=== PATIENT | female | born 1985 ===

== ENCOUNTER 2017-04-21 20:14 | Emergency (ER) | payer OTHER ==
[2017-04-21 20:28] VITALS: BMI 65.0
[2017-04-21 20:34] VITALS: TEMP 99.4
[2017-04-21] MEDS ORDERED: TDAP Vaccine 0.5 mL Syr IM ONE (21:06)
--- NOTE | 2017-04-21 21:08 | ED PDOC ---
Arrival/HPI - General Historian: Patient - History of Present Illness Time/Duration: Prior to Arrival Symptom Onset: Sudden Symptom Course: Unchanged Activities at Onset: Light Context: Home - General Chief Complaint: Abnormal Skin Integrity Time Seen by Provider: 04/21/17 20:52 - History of Present Illness Narrative History of Present Illness (Text): 04/21/17 21:05 32 year old female who presents to the Emergency department after sustaining a laceration to her left forearm. Patient states she accidentally cut her left forearm on an air conditioner. Patient deniers any weakness/numbness/tingling in the extremity, decreased range of motion, other trauma/injury, or any other complaints. (Kvng VALENCIA,Marjorie Fulton) Past Medical History - Provider Review Nursing Documentation Reviewed: Yes - Infectious Disease Hx of Infectious Diseases: None - Pulmonary Hx Respiratory Disorders: Yes Hx Asthma: Yes - Psychiatric Hx Substance Use: Yes Family/Social History - Physician Review Nursing Documentation Reviewed: Yes Family/Social History: Unknown Family HX Smoking Status: Light Smoker < 10 Cigarettes Daily Hx Alcohol Use: Yes Hx Substance Use: Yes Allergies/Home Meds Allergies/Adverse Reactions: Allergies No Known Allergies Allergy (Verified 10/19/16 12:25) Home Medications: Home Meds Medication Instructions Recorded Confirmed Albuterol HFA [Ventolin HFA 90 1 puff INH QID PRN 04/21/17 04/21/17 mcg/actuation (8 g)] Multivit/Folic Acid/I 1 tab PO DAILY 04/21/17 04/21/17 [] Sertraline [Zoloft] 100 mg PO DAILY 04/21/17 04/21/17 Review of Systems - Physician Review All systems were reviewed & negative as marked: Yes - Review of Systems Constitutional: Normal Eyes: Normal ENT: Normal Respiratory: Normal. absent: SOB Cardiovascular: Normal Gastrointestinal: Normal. absent: Nausea, Vomiting Genitourinary Female: Normal Musculoskeletal: Normal Skin: Laceration. absent: Rash Neurological: Normal. absent: Headache, Dizziness Endocrine: Normal Hemo/Lymphatic: Normal Psychiatric: Normal Physical Exam Vital Signs Reviewed: Yes Temperature: Afebrile Blood Pressure: Normal Pulse: Regular Respiratory Rate: Normal Appearance: Positive for: Well-Appearing, Non-Toxic, Comfortable Pain Distress: None Mental Status: Positive for: Alert and Oriented X 3 - Systems Exam Head: Present: Atraumatic, Normocephalic Pupils: Present: PERRL Extroacular Muscles: Present: EOMI Conjunctiva: Present: Normal Mouth: Present: Moist Mucous Membranes Upper Extremity: Present: Normal ROM, NORMAL PULSES, Neurovascularly Intact, Capillary Refill < 2s, Other (3 cm superficial laceration to volar aspect of left forearm). No: Cyanosis, Edema, Tenderness, Swelling, Erythema, Temperature Abnormalties, Deformity Lower Extremity: Present: Normal Inspection. No: Edema Neurological: Present: GCS=15, CN II-XII Intact, Speech Normal Skin: Present: Warm, Dry, Normal Color. 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 Differential Diagnosis included but are not limited to: laceration Plan: -- Laceration repair -- Tetanus vaccination -- Reassess and disposition Progress Notes: PROCEDURE: LACERATION REPAIR Performed by the emergency provider Location: Volar aspect left forearm Length: 3 cm Description: superficial, clean wound edges, no foreign bodies Distal CMS: Normal. No deficits. Neurovascularly intact. Preparation: The wound was cleaned with NS and Betadyne. The area was prepped and draped in the usual sterile fashion. Exploration: The wound was explored and no foreign bodies were found. Procedure: The wound was closed with Dermabond. Post-Procedure: Good closure and hemostasis. The patient tolerated the procedure well and there were no complications. CSM remains intact. Post procedure dressing applied. ( Kvng VALENCIA,Marjorie Fulton) - Medication Orders Current Medication Orders: Discontinued Medications Tetanus/Reduced Diphtheria/Acell Pertussis (Boostrix Vaccine Inj) 0.5 ml IM .ONCE ONE Stop: 04/21/17 21:07 Last Admin: 04/21/17 21:36 Dose: 0.5 ml - PA / SUPERVISOR PATCHING / Resident Statement MD/DO has reviewed & agrees with the documentation as recorded. - Scribe Statement The provider has reviewed the documentation as recorded by the Scribe - Scribe Statement Radha Ambriz Provider Scribe Attestation: All medical record entries made by the Scribe were at my direction and personally dictated by me. I have reviewed the chart and agree that the record accurately reflects my personal performance of the history, physical exam, medical decision making, and the department course for this patient. I have also personally directed, reviewed, and agree with the discharge instructions and disposition. (Kvng VALENCIA,Marjorie Fulton) Disposition/Present on Arrival - Present on Arrival Any Indicators Present on Arrival: No History of DVT/PE: No History of Uncontrolled Diabetes: No Urinary Catheter: No History of Decub. Ulcer: No History Surgical Site Infection Following: None - Disposition Have Diagnosis and Disposition been Completed?: Yes Disposition Time: 21:00 Patient Plan: Discharge - Disposition Diagnosis: Forearm laceration Disposition: HOME/ ROUTINE Condition: STABLE Discharge Instructions (ExitCare): Laceration (ED), Skin Adhesive Care (ED) Print Language: GREENLANDIC Additional Instructions: Thank you for letting us take care of you today. You were treated for forearm laceration. The emergency medical care you received today was directed at your acute symptoms. Return to the Emergency Department if your symptoms worsen, do not improve, or if you have any other problems. Please contact your doctor in 2 days for re-evaluation and follow up. Bring any paperwork you were given at discharge with you along with any medications you are taking to your follow up visit. Our treatment cannot replace ongoing medical care by a primary care provider (PCP) outside of the emergency department. Thank you for allowing the [facility] team to be part of your care today. Referrals: [facility] at [facility] [place] [Outside] - Follow up with primary Forms: [employer] (Danish), WORK NOTE
[2017-04-21 22:07] VITALS: BP 149/85; PULSE 90; RESP 18; O2SAT 98
== END 2017-04-21 21:40 | disposition home or self-care (01) ==
LOC: ED 20:14
DX: S51.812A Laceration without foreign body of left forearm, initial encounter (principal); W45.8XXA Other foreign body or object entering through skin, initial encounter; Z23 Encounter for immunization

== ENCOUNTER 2017-04-24 18:09 | Emergency (ER) | payer OTHER ==
[2017-04-24 18:10] VITALS: BMI 65.0
[2017-04-24 18:23] VITALS: RESP 18; TEMP 98.9
--- NOTE | 2017-04-24 18:23 | ED PDOC ---
Arrival/HPI - General Time Seen by Provider: 04/24/17 18:11 Historian: Patient - History of Present Illness Narrative History of Present Illness (Text): 04/24/17 18:22 32 y/o female, pmh including htn/asthma/TIA?, nkda, s/p seen in the ER about 3 days ago for rt. forearm laceration and here for the evaluation as she has pus draining out. Pt. stated that she had a metal scratch laceration on the rt. forearm, discharge home with no antibiotic after the dermabond, no fever or chills, no difficulty moving the rt. forearm, no numbness or tingling, no other medical or psychological complaints. Past Medical History - Provider Review Nursing Documentation Reviewed: Yes - Infectious Disease Hx of Infectious Diseases: None - Pulmonary Hx Respiratory Disorders: Yes Hx Asthma: Yes - Psychiatric Hx Substance Use: Yes Family/Social History - Physician Review Nursing Documentation Reviewed: Yes Family/Social History: Unknown Family HX Smoking Status: Light Smoker < 10 Cigarettes Daily Hx Alcohol Use: Yes Hx Substance Use: Yes Allergies/Home Meds Allergies/Adverse Reactions: Allergies No Known Allergies Allergy (Verified 04/24/17 18:23) Home Medications: Home Meds Medication Instructions Recorded Confirmed Albuterol HFA [Ventolin HFA 90 1 puff INH QID PRN 04/21/17 04/24/17 mcg/actuation (8 g)] Multivit/Folic Acid/I 1 tab PO DAILY 04/21/17 04/24/17 [] Sertraline [Zoloft] 100 mg PO DAILY 04/21/17 04/24/17 Review of Systems - Review of Systems Constitutional: absent: Fatigue, Fevers Eyes: absent: Vision Changes ENT: absent: Hearing Changes Respiratory: absent: SOB, Cough Cardiovascular: absent: Chest Pain Gastrointestinal: absent: Abdominal Pain, Nausea, Vomiting Musculoskeletal: absent: Arthralgias, Back Pain, Myalgias Skin: Laceration. absent: Rash, Pruritis, Skin Lesions, Ulcer, Cellulitis Neurological: absent: Headache, Dizziness Psychiatric: absent: Anxiety, Depression Physical Exam Vital Signs Reviewed: Yes Vital Signs Temp Pulse Resp BP Pulse Ox 04/24/17 18:19 98.9 F 82 18 100/63 97 Temperature: Afebrile Blood Pressure: Normal Pulse: Regular Respiratory Rate: Normal Appearance: Positive for: Well-Appearing, Non-Toxic, Comfortable Pain Distress: Mild Mental Status: Positive for: Alert and Oriented X 3 - Systems Exam Head: Present: Atraumatic, Normocephalic Pupils: Present: PERRL Extroacular Muscles: Present: EOMI Conjunctiva: Present: Normal Mouth: Present: Moist Mucous Membranes Neck: Present: Normal Range of Motion Respiratory/Chest: Present: Clear to Auscultation, Good Air Exchange. No: Respiratory Distress, Accessory Muscle Use Cardiovascular: Present: Regular Rate and Rhythm, Normal S1, S2. No: Murmurs Abdomen: Present: Normal Bowel Sounds. No: Tenderness, Distention, Peritoneal Signs Back: Present: Normal Inspection Upper Extremity: Present: Normal Inspection, Other (Rt. forearm: distal 1/3 forearm flexor aspect on the tatto noted to have approx. 4cm with dermabond glue detach from the wound with the wound is wet and poor healing with mild serous and yellow discharge with mild erythematous, no streaking or ulcers, FROM without limtiation, sensation intact, motor 5/5, +radial pulse, capillary refill< 2 seconds. ). No: Cyanosis, Edema Lower Extremity: Present: Normal Inspection. No: Edema Neurological: Present: GCS=15, Speech Normal, Motor Func Grossly Intact, Gait Normal, Memory Normal Skin: Present: Warm, Dry, Normal Color. No: Rashes Psychiatric: Present: Alert, Oriented x 3, Normal Insight, Normal Concentration Medical Decision Making ED Course and Treatment: 04/24/17 18:39 -dermabond glue already detached and she already squeezed the fluid out, irrigated with saline 500cc, clean with betadine, keflex and bactrim ds ordered. -Discharge home with keflex, bactrim ds, motrin, bacitracin oinment, follow up with your own pmd or ER within 2-3 days for wound check, return to the ER for any new or worsening signs or symptoms. - Medication Orders Current Medication Orders: Discontinued Medications Cephalexin Monohydrate (Keflex) 500 mg PO STAT STA PRN Reason: Protocol Stop: 04/24/17 18:33 Trimethoprim/Sulfamethoxazole (Bactrim Ds Tab) 1 tab PO STAT STA PRN Reason: Protocol Stop: 04/24/17 18:33 - PA / MANAGER SECONDARY / Resident Statement MD/DO has reviewed & agrees with the documentation as recorded. Disposition/Present on Arrival - Present on Arrival Any Indicators Present on Arrival: No History of DVT/PE: No History of Uncontrolled Diabetes: No Urinary Catheter: No History of Decub. Ulcer: No History Surgical Site Infection Following: None - Disposition Have Diagnosis and Disposition been Completed?: Yes Diagnosis: Visit for wound check Disposition: HOME/ ROUTINE Disposition Time: 18:41 Patient Plan: Discharge Condition: GOOD Additional Instructions: -Discharge home with keflex, bactrim ds, motrin, bacitracin oinment, follow up with your own pmd or ER within 2-3 days for wound check, return to the ER for any new or worsening signs or symptoms. Prescriptions: Bacitracin Ointment [Bacitracin] 1 appful TOP BID #15 g Cephalexin [Keflex] 500 mg PO QID #40 capsule Ibuprofen [Motrin Tab] 600 mg PO QID PRN #30 tab PRN Reason: Other Sulfamethoxazole/Trimethoprim [Bactrim DS 800 mg-160 mg] 1 tab PO BID #20 tab Referrals: [facility] at [facility] [place]] - Follow up with primary Franki Delarosa MD [Staff Provider] - Follow up with primary Forms: WORK NOTE
[2017-04-24] MEDS ORDERED: Tmp-Smz 800 mg-160 mg DS Tab PO STA (18:32)
[2017-04-24 19:02] VITALS: BP 105/68; PULSE 81; O2SAT 99
== END 2017-04-24 19:01 | disposition home or self-care (01) ==
LOC: ED 18:09
DX: Z51.89 Encounter for other specified aftercare (principal); F17.210 Nicotine dependence, cigarettes, uncomplicated; I10 Essential (primary) hypertension

== ENCOUNTER 2017-09-14 18:45 | Emergency (ER) | payer OTHER ==
[2017-09-14 18:45] VITALS: BMI 65.0
[2017-09-14] MEDS ORDERED: Albuterol-Ipratrop 3 mg / 0.5 (3 ml) UD IH STA (19:04)
--- NOTE | 2017-09-14 19:28 | ED PDOC ---
Arrival/HPI - General Chief Complaint: Cough, Cold, Congestion Time Seen by Provider: 09/14/17 19:01 Historian: Patient - History of Present Illness Narrative History of Present Illness (Text): 09/14/17 19:25 Patient is a 32 y/o F with hx of asthma, presenting with uri complaints. She reports 4 day history of rhinorrhea, non-productive cough and myalgias. Reports that she has not gotten the flu shot this year. Reports some shortness of breath but denies using her nebulizer. PMD: Dr. Layton Santana Past Medical History - Provider Review Nursing Documentation Reviewed: Yes - Infectious Disease Hx of Infectious Diseases: None - Pulmonary Hx Respiratory Disorders: Yes Hx Asthma: Yes - Hematological/Oncological Hx Blood Disorders: Yes Other/Comment: low iron - Integumentary Hx Dermatological Disorder: No - Musculoskeletal/Rheumatological Hx Musculoskeletal Disorders: Yes Other/Comment: chronic back pain - Gastrointestinal Hx Gastrointestinal Disorders: No - Genitourinary/Gynecological Hx Genitourinary Disorders: No - Psychiatric Hx Psychophysiologic Disorder: No Hx Substance Use: Yes - Anesthesia Hx Anesthesia: No Family/Social History - Physician Review Nursing Documentation Reviewed: Yes Family/Social History: No Known Family HX Smoking Status: Light Smoker < 10 Cigarettes Daily Hx Alcohol Use: Yes Hx Substance Use: Yes Allergies/Home Meds Allergies/Adverse Reactions: Allergies No Known Allergies Allergy (Verified 09/14/17 19:02) Home Medications: Home Meds Medication Instructions Recorded Confirmed Albuterol HFA [Ventolin HFA 90 1 puff INH QID PRN 04/21/17 09/14/17 mcg/actuation (8 g)] Multivit/Folic Acid/I 1 tab PO DAILY 04/21/17 09/14/17 [] Sertraline [Zoloft] 100 mg PO DAILY 04/21/17 09/14/17 Gabapentin [Neurontin] 0 mg PO BID 09/14/17 09/14/17 Review of Systems - Physician Review All systems were reviewed & negative as marked: Yes - Review of Systems Constitutional: Fevers (subjective) ENT: Hearing Changes Respiratory: SOB, Cough, Wheezing. absent: Sputum Cardiovascular: absent: Chest Pain, Palpitations, Edema, Calf Pain, LENZ, Orthopnea, Syncope Gastrointestinal: absent: Abdominal Pain, Constipation, Diarrhea, Nausea, Vomiting Genitourinary Female: absent: Dysuria Neurological: absent: Headache Psychiatric: absent: Anxiety, Depression Physical Exam Vital Signs Temp Pulse Resp BP Pulse Ox 09/14/17 20:57 85 18 122/85 100 09/14/17 19:15 98.1 F 97 H 16 117/95 H 100 Temperature: Afebrile Blood Pressure: Normal Pulse: Regular Respiratory Rate: Normal Appearance: Positive for: Well-Appearing, Non-Toxic, Comfortable Pain Distress: None Mental Status: Positive for: Alert and Oriented X 3 - Systems Exam Head: Present: Atraumatic, Normocephalic Pupils: Present: PERRL Extroacular Muscles: Present: EOMI Conjunctiva: Present: Normal Mouth: Present: Moist Mucous Membranes Neck: Present: Normal Range of Motion Respiratory/Chest: Present: Good Air Exchange, Wheezes (scant). No: Respiratory Distress, Accessory Muscle Use Cardiovascular: Present: Regular Rate and Rhythm. No: Murmurs, Normal S1, S2 Abdomen: No: Tenderness, Distention, Rebound, Guarding Back: Present: Normal Inspection Upper Extremity: Present: Normal Inspection Lower Extremity: Present: Normal Inspection. No: Edema Neurological: Present: GCS=15, CN II-XII Intact Psychiatric: Present: Alert, Oriented x 3 Medical Decision Making ED Course and Treatment: 09/14/17 19:27 Will give nebulizer treatment, cough medication and toradol for myalgias. Will r/o pna. Will evaluate for flu 09/14/17 19:28 09/14/17 20:24 Cxray concerning for pneumonia. Afebrile and well appearing. Normal vitals. Wheezing resolved after duoneb and steroids. EKG shows NSR at 93bpm with normal intervals and no ST changes. Will dc with nebs, prednisone, zpack and cough medication - Lab Interpretations Lab Results: Lab Results 09/14/17 19:37: Influenza Typ A,B (EIA) Negative for flu a/b - RAD Interpretation Radiology Orders: 09/14/17 19:04 CHEST TWO VIEWS (PA/LAT) [RAD] Stat - Medication Orders Current Medication Orders: Discontinued Medications Albuterol/Ipratropium (Duoneb 3 Mg/0.5 Mg (3 Ml) Ud) 3 ml IH STAT STA Stop: 09/14/17 19:05 Last Admin: 09/14/17 19:35 Dose: 3 ml Azithromycin (Zithromax) 500 mg PO STAT STA PRN Reason: Protocol Stop: 09/14/17 20:30 Last Admin: 09/14/17 20:45 Dose: 500 mg Benzonatate (Tessalon Perles) 100 mg PO STAT STA Stop: 09/14/17 19:05 Last Admin: 09/14/17 19:35 Dose: 100 mg Ketorolac Tromethamine (Toradol) 60 mg IM STAT STA Stop: 09/14/17 19:05 Last Admin: 09/14/17 19:35 Dose: 60 mg MAR Pain Assessment Document 09/14/17 19:35 AD (Rec: 09/14/17 19:35 AD [id number]) Pain Reassessment Is this a pain reassessment? No Presence of Pain Presence of Pain Yes Description Intensity of Pain at present 5 Pain Behavior Facial Grimacing IM Administration Charges Document 09/14/17 19:35 AD (Rec: 09/14/17 19:35 AD [id number]) Charges for Administration # of IM Administrations 1 Prednisone (Prednisone Tab) 60 mg PO STAT ONE Stop: 09/14/17 20:37 Last Admin: 09/14/17 20:45 Dose: 60 mg Disposition/Present on Arrival - Present on Arrival Any Indicators Present on Arrival: No History of DVT/PE: No History of Uncontrolled Diabetes: No Urinary Catheter: No History of Decub. Ulcer: No History Surgical Site Infection Following: None - Disposition Have Diagnosis and Disposition been Completed?: Yes Diagnosis: Viral illness, Cough Disposition: HOME/ ROUTINE Disposition Time: 20:25 Patient Plan: Discharge Condition: GOOD Discharge Instructions (ExitCare): Viral Syndrome (ED) Additional Instructions: Use your nebulizer every 6 hours as needed for wheezing. Use cough drops for cough. Take full course of antibiotics. Return to ED if condition worsens. Follow-up with PMD within 2 days Prescriptions: Albuterol HFA [Ventolin HFA 90 mcg/actuation (8 g)] 2 puff IH [id number] #1 puff Albuterol 0.083% [Albuterol Sulfate 3 Ml] 3 ml IH Q6 #100 neb Azithromycin 250 mg PO DAILY #4 tablet Benzonatate [Tessalon Perles] 100 mg PO TID PRN #20 sgl PRN Reason: Cough Prednisone 50 mg PO DAILY #3 tablet Promethazine/Codeine [Codeine/Promethazine 10 MG/5 Ml-6.25 MG/5 Ml] 5 ml PO HS # 25 ml Referrals: Layton Santana MD [Primary Care Provider] - Follow up with primary Forms: [employer] (Guamanian), WORK NOTE
[2017-09-14 19:34] VITALS: TEMP 98.1; O2SAT 100
[2017-09-14 20:58] VITALS: BP 122/85; PULSE 85; RESP 18
--- NOTE | 2017-09-15 09:18 | RAD ---
HISTORY: cough' COMPARISON: Comparison is made to 08/02/2016 TECHNIQUE: Chest PA and lateral FINDINGS: LUNGS: No new infiltrate or consolidation in the lungs noted. PLEURA: No significant pleural effusion identified. No pneumothorax apparent. CARDIOVASCULAR: Normal. OSSEOUS STRUCTURES: No significant abnormalities. VISUALIZED UPPER ABDOMEN: Normal. OTHER FINDINGS: None. IMPRESSION: No active disease.
--- NOTE | 2017-09-15 23:51 | CARD ---
APPROVED REPORT EKG Measurement Heart [id number] <Conclusion> Poor data quality, interpretation may be adversely affected Normal sinus rhythm Normal ECG
== END 2017-09-14 20:48 | disposition home or self-care (01) ==
LOC: ED 18:45
DX: B34.9 Viral infection, unspecified (principal)
CPT/HCPCS: 71046; 87804; 93005; 96372; 99283; J1885

== ENCOUNTER 2017-11-13 17:48 | Emergency (ER) | payer OTHER ==
[2017-11-13 17:48] VITALS: BMI 65.0
[2017-11-13 18:11] VITALS: BP 147/93
--- NOTE | 2017-11-13 18:35 | ED PDOC ---
Arrival/HPI - General Chief Complaint: Hip Pain Time Seen by Provider: 11/13/17 17:59 Historian: Patient - History of Present Illness Narrative History of Present Illness (Text): 11/13/17 18:21 32yo morbidly obese female with PMhx of Asthma who present with complaint of right hip pain. Pt noted remote history of ligamentous injury to the hip years ago. States she have had on/off pain to the hip for years now. States she started having pain on the right hip when doing house chore 3days ago. She did not take any medication for the pain. Pain is crampy/sharp, worse with sitting down. She denies saddle anesthesia, abdominal pain ,focal weakness, urinary/ fecal incontinence, any other complaint. Past Medical History - Provider Review Nursing Documentation Reviewed: Yes - Infectious Disease Hx of Infectious Diseases: None - Cardiac Hx Cardiac Disorders: No - Pulmonary Hx Respiratory Disorders: Yes Hx Asthma: Yes - Neurological Hx Neurological Disorder: No - HEENT Hx HEENT Disorder: No - Renal Hx Renal Disorder: No - Endocrine/Metabolic Hx Endocrine Disorders: No - Hematological/Oncological Hx Blood Disorders: Yes Other/Comment: low iron - Integumentary Hx Dermatological Disorder: No - Musculoskeletal/Rheumatological Hx Musculoskeletal Disorders: Yes Other/Comment: chronic back pain - Gastrointestinal Hx Gastrointestinal Disorders: No - Genitourinary/Gynecological Hx Genitourinary Disorders: No - Psychiatric Hx Psychophysiologic Disorder: No Hx Substance Use: Yes - Anesthesia Hx Anesthesia: No Family/Social History - Physician Review Nursing Documentation Reviewed: Yes Family/Social History: Unknown Family HX Smoking Status: Light Smoker < 10 Cigarettes Daily Hx Alcohol Use: Yes Hx Substance Use: Yes Allergies/Home Meds Allergies/Adverse Reactions: Allergies No Known Allergies Allergy (Verified 11/13/17 17:50) Home Medications: Home Meds Medication Instructions Recorded Confirmed Multivit/Folic Acid/I 1 tab PO DAILY 04/21/17 11/13/17 [] Sertraline [Zoloft] 100 mg PO DAILY 04/21/17 11/13/17 Gabapentin [Neurontin] 0 mg PO BID 09/14/17 11/13/17 Review of Systems - Physician Review All systems were reviewed & negative as marked: Yes - Review of Systems Constitutional: Normal Eyes: Normal ENT: Normal Respiratory: Normal Cardiovascular: Normal Gastrointestinal: Normal Genitourinary Female: Normal Musculoskeletal: Arthralgias (Right hip pain) Skin: Normal Neurological: Normal Endocrine: Normal Hemo/Lymphatic: Normal Psychiatric: Normal Physical Exam Vital Signs Reviewed: Yes Vital Signs Temp Pulse Resp BP Pulse Ox 11/13/17 17:52 98.8 F 90 18 147/93 H 98 Temperature: Afebrile Blood Pressure: Normal Pulse: Regular Respiratory Rate: Normal Appearance: Positive for: Well-Appearing, Non-Toxic, Comfortable Pain Distress: None Mental Status: Positive for: Alert and Oriented X 3 - Systems Exam Head: Present: Atraumatic, Normocephalic Pupils: Present: PERRL Extroacular Muscles: Present: EOMI Conjunctiva: Present: Normal Mouth: Present: Moist Mucous Membranes Neck: Present: Normal Range of Motion Respiratory/Chest: Present: Clear to Auscultation, Good Air Exchange. No: Respiratory Distress, Accessory Muscle Use Cardiovascular: Present: Regular Rate and Rhythm, Normal S1, S2. No: Murmurs Abdomen: No: Tenderness, Distention, Peritoneal Signs Back: Present: Pain with Leg Raise (Right SLR). No: Midline Tenderness, Paraspinal Tenderness Upper Extremity: Present: Normal Inspection. No: Cyanosis, Edema Lower Extremity: Present: NORMAL PULSES, Normal ROM (With right SLR). No: Edema , Tenderness, Swelling Neurological: Present: GCS=15, CN II-XII Intact, Speech Normal Skin: Present: Warm, Dry, Normal Color. No: Rashes Psychiatric: Present: Alert, Oriented x 3, Normal Insight, Normal Concentration Medical Decision Making ED Course and Treatment: 11/13/17 20:03 Pt in ED for stated history. she is ambulatory with normal gait. Pain was controlled in ED with medication right hip xray DJD. No acute finding. Result was DW the pt. she was referred to her PMD/ortho. NSAID given for pain. - RAD Interpretation Radiology Orders: 11/13/17 18:05 HIP MIN 2V W/ PELVIS RT [RAD] Stat - Medication Orders Current Medication Orders: Discontinued Medications Ketorolac Tromethamine (Toradol) 60 mg IM STAT STA Stop: 11/13/17 18:07 Last Admin: 11/13/17 19:45 Dose: 60 mg MAR Pain Assessment Document 11/13/17 19:45 [email or web address] (Rec: 11/13/17 19:46 [email or web address] [id number]) Pain Reassessment Is this a pain reassessment? No Sleep Is patient sleeping during reassessment? No Presence of Pain Presence of Pain Yes Pain Scale Used Pain Scale Used Numeric Location Left, Right or Bilateral Right Pain Location Body Site Hip Description Description Constant Intensity of Pain at present 3 Pain Behavior Facial Grimacing Aggravating Factors Changing Position Alleviating Factors/Management Position Change Techniques Alleviating Factors Medication IM Administration Charges Document 11/13/17 19:45 [email or web address] (Rec: 11/13/17 19:46 [email or web address] [id number]) Injection Site MAR Injection Site Left Deltoid Charges for Administration # of IM Administrations 1 Disposition/Present on Arrival - Present on Arrival Any Indicators Present on Arrival: No History of DVT/PE: No History of Uncontrolled Diabetes: No Urinary Catheter: No History of Decub. Ulcer: No History Surgical Site Infection Following: None - Disposition Have Diagnosis and Disposition been Completed?: Yes Diagnosis: Hip pain Disposition: HOME/ ROUTINE Disposition Time: 20:05 Patient Plan: Discharge Condition: STABLE Discharge Instructions (ExitCare): Hip Pain Additional Instructions: Follow up with your doctor Return to ED for any new or worsening symptoms Prescriptions: Naproxen [Naprosyn] 500 mg PO BID #20 tab Referrals: Robert Goetz, [Primary Care Provider] - Follow up with primary Forms: [facility] (Frisian), SCHOOL NOTE
[2017-11-13 20:24] VITALS: PULSE 91; RESP 19; TEMP 98; O2SAT 97
--- NOTE | 2017-11-14 09:59 | RAD ---
PROCEDURE: Right Hip and pelvis Radiographs. HISTORY: hip pain COMPARISON: None. FINDINGS: BONES: Normal. No fracture. JOINTS: Normal. SOFT TISSUES: Normal. OTHER FINDINGS: None. IMPRESSION: No acute findings
== END 2017-11-13 20:31 | disposition home or self-care (01) ==
LOC: ED 17:48
DX: M25.551 Pain in right hip (principal)
CPT/HCPCS: 73502; 96372; 99283; J1885

== ENCOUNTER 2018-02-01 15:43 | Emergency (ER) | payer OTHER ==
[2018-02-01 15:43] VITALS: BMI 65.0
[2018-02-01 16:13] VITALS: TEMP 98.3; O2SAT 99
--- NOTE | 2018-02-01 16:19 | ED PDOC ---
Arrival/HPI - General Chief Complaint: Trauma Time Seen by Provider: 02/01/18 16:15 Historian: Patient - History of Present Illness Narrative History of Present Illness (Text): 02/01/18 16:15 This 32 yo obese female who denies pmh, presents to this ED c/o left index finger tip laceration x [employer]. Patient stated she accidentally cut finger with a razor blade. Patient noted last tetanus was 1-2 years ago. Patient is right hand dominant. Denies other somatic complains. Past Medical History - Provider Review Nursing Documentation Reviewed: Yes - Infectious Disease Hx of Infectious Diseases: None - Cardiac Hx Cardiac Disorders: No - Pulmonary Hx Respiratory Disorders: Yes Hx Asthma: Yes - Neurological Hx Neurological Disorder: No - HEENT Hx HEENT Disorder: No - Renal Hx Renal Disorder: No - Endocrine/Metabolic Hx Endocrine Disorders: No - Hematological/Oncological Hx Blood Disorders: Yes Other/Comment: low iron - Integumentary Hx Dermatological Disorder: No - Musculoskeletal/Rheumatological Hx Musculoskeletal Disorders: Yes Other/Comment: chronic back pain - Gastrointestinal Hx Gastrointestinal Disorders: No - Genitourinary/Gynecological Hx Genitourinary Disorders: No - Psychiatric Hx Psychophysiologic Disorder: No Hx Substance Use: No - Anesthesia Hx Anesthesia: No Family/Social History - Physician Review Nursing Documentation Reviewed: Yes Family/Social History: Other (noncontributory) Smoking Status: Light Smoker < 10 Cigarettes Daily Hx Alcohol Use: Yes Frequency of alcohol use: Socially Hx Substance Use: No Allergies/Home Meds Allergies/Adverse Reactions: Allergies No Known Allergies Allergy (Verified 02/01/18 16:14) Home Medications: Home Meds Medication Instructions Recorded Confirmed No Known Home Med 02/01/18 02/01/18 Review of Systems - Review of Systems Constitutional: Normal. absent: Fatigue, Weight Change, Fevers, Night Sweats Eyes: Normal ENT: Normal Respiratory: Normal. absent: SOB, Cough Cardiovascular: Normal. absent: Chest Pain Gastrointestinal: Normal Genitourinary Female: Normal Musculoskeletal: Other ((+) left index finger laceration) Skin: Normal Neurological: Normal Endocrine: Normal Hemo/Lymphatic: Normal Psychiatric: Normal Physical Exam Vital Signs Temp Pulse Resp BP Pulse Ox 02/01/18 16:11 98.3 F 99 H 18 126/79 99 Temperature: Afebrile Blood Pressure: Normal Pulse: Regular Respiratory Rate: Normal Appearance: Positive for: Well-Appearing, Non-Toxic, Comfortable Pain Distress: None Mental Status: Positive for: Alert and Oriented X 3 - Systems Exam Head: Present: Atraumatic, Normocephalic Pupils: Present: PERRL Extroacular Muscles: Present: EOMI Conjunctiva: Present: Normal Mouth: Present: Moist Mucous Membranes Neck: Present: Normal Range of Motion Upper Extremity: Present: Normal ROM, NORMAL PULSES, Neurovascularly Intact, Capillary Refill < 2s, Other ((+) 1 cm superficial laceration located and palmar aspect of distal left 2nd finger tip. No significant bleeding). No: Cyanosis, Edema, Tenderness, Swelling, Erythema, Temperature Abnormalties Lower Extremity: Present: Normal Inspection, Normal ROM Neurological: Present: GCS=15, CN II-XII Intact, Speech Normal, Motor Func Grossly Intact, Normal Sensory Function, Normal Cerebellar Funct, Gait Normal, Memory Normal Skin: Present: Warm, Dry, Normal Color. No: Rashes Psychiatric: Present: Alert, Oriented x 3, Normal Insight, Normal Concentration Medical Decision Making ED Course and Treatment: 02/01/18 16:43 Re-evaluation. Patient feels better. Discussed results and plan with patient who expresses understanding. All questions answered and there is agreement with the plan to discharge home with instructions. Patient stable for discharge. Return if symptoms persist or worsen. Re-evaluation Time: 16:43 Reassessment Condition: Re-examined, Improved - Procedure PROCEDURE NOTE (Text): 02/01/18 16:43 PROCEDURE: LACERATION REPAIR Performed by the emergency provider Location: left index finger Length: 1 cm Description: clean wound edges, no foreign bodies Distal CMS: Normal. No deficits. Neurovascularly intact. Anesthesia: none Preparation: The wound was cleaned with NS and [place]. The area was prepped and draped in the usual sterile fashion. Exploration: The wound was explored and no foreign bodies were found. Procedure: The wound was closed with Dermabond. There was good approximation. Post-Procedure: Good closure and hemostasis. The patient tolerated the procedure well and there were no complications. CSM remains intact. Post procedure dressing applied Disposition/Present on Arrival - Present on Arrival Any Indicators Present on Arrival: No History of DVT/PE: No History of Uncontrolled Diabetes: No Urinary Catheter: No History of Decub. Ulcer: No History Surgical Site Infection Following: None - Disposition Have Diagnosis and Disposition been Completed?: Yes Diagnosis: Finger laceration Disposition: HOME/ ROUTINE Disposition Time: 16:45 Patient Plan: Discharge Condition: GOOD Discharge Instructions (ExitCare): Laceration Repair With Glue (DC) Additional Instructions: Call private doctor for follow up visit in 1-2 days. Keep wound clean and dry for 2 days, then clean wound daily with soap and water. Return to emergency if wound becomes infected. Referrals: [facility] [Outside] - Follow up with primary [facility] [Outside] - Follow up with primary Forms: [facility] (Japanese)
[2018-02-01 16:59] VITALS: BP 148/90; PULSE 80; RESP 16
== END 2018-02-01 16:55 | disposition home or self-care (01) ==
LOC: ED 15:43
DX: S61.211A Laceration without foreign body of left index finger without damage to nail, initial encounter (principal); W27.8XXA Contact with other nonpowered hand tool, initial encounter; Y92.9 Unspecified place or not applicable

== ENCOUNTER 2018-03-12 08:55 | Emergency (ER) | payer OTHER ==
[2018-03-12 09:02] VITALS: BMI 46.3
[2018-03-12 09:12] VITALS: BP 144/105
[2018-03-12] MEDS ORDERED: Albuterol 0.5% Inhal Sol (2.5 mg/0.5 ml) UD IH STA (09:30)
--- NOTE | 2018-03-12 09:35 | ED PDOC ---
Arrival/HPI - General Chief Complaint: Cough, Cold, Congestion Time Seen by Provider: 03/12/18 09:00 Historian: Patient - History of Present Illness Narrative History of Present Illness (Text): 03/12/18 09:37 32 yr old female w/ hx of asthma (no previous admissions or intubations) p/w cp and cough x3d. Pt notes symptoms are simliar to previous cold like symptoms that she has had before. She denies any phlegm production. Pt notes chest pain started today, after coughing x3d. Chest pain is left side of chest, without radiation, sharp, stabbing. No hx of blood clots, no venous stasis, no family hx of blood clots, No leg swelling, No recent trauma or surgery, No Hormone usage. No hx of cancer. No family hx of WI or heart related issues. No radiation to back. No SOB. Has not tried using her inhaler, has inhaler at home. Does not take steroids at home. No fall or trauma. No N/V or abdominal pain. No drug use. Occasional / Social smoker. No fever, chills or night sweats. No difficulty swallowing. No other complaints. Time/Duration: Prior to Arrival, 4-6 hours Symptom Onset: Gradual Symptom Course: Intermittent Quality: Stabbing Severity Level: 4 Activities at Onset: Other Modifying Factors (Text): 03/12/18 09:42 worse with coughing Past Medical History - Provider Review Nursing Documentation Reviewed: Yes - Travel History Have you recently traveled outside [place] w/in the past 3 mons?: No - Patient History Narrative Patient History: asthma (no intubations or admissions) - Infectious Disease Hx of Infectious Diseases: None - Tetanus Immunization Tetanus Immunization: Unknown - Reproductive Menopause: No Currently : No - Cardiac Hx Cardiac Disorders: No - Pulmonary Hx Respiratory Disorders: Yes Hx Asthma: Yes - Neurological Hx Neurological Disorder: No - HEENT Hx HEENT Disorder: No - Renal Hx Renal Disorder: No - Endocrine/Metabolic Hx Endocrine Disorders: No - Hematological/Oncological Hx Blood Disorders: Yes Other/Comment: low iron - Integumentary Hx Dermatological Disorder: No - Musculoskeletal/Rheumatological Hx Musculoskeletal Disorders: Yes Other/Comment: chronic back pain - Gastrointestinal Hx Gastrointestinal Disorders: No - Genitourinary/Gynecological Hx Genitourinary Disorders: No - Psychiatric Hx Anxiety: Yes Hx Substance Use: No - Anesthesia Hx Anesthesia: No - Suicidal Assessment Suicidal Thoughts: No Plan: No Family/Social History - Physician Review Nursing Documentation Reviewed: Yes Family/Social History: No Known Family HX Smoking Status: Light Smoker < 10 Cigarettes Daily Hx Alcohol Use: Yes Hx Substance Use: No Hx Substance Use Treatment: No Allergies/Home Meds Allergies/Adverse Reactions: Allergies No Known Allergies Allergy (Verified 03/12/18 09:02) Review of Systems - Review of Systems Constitutional: Fatigue. absent: Fevers Eyes: Normal ENT: Normal, Rhinorrhea. absent: Hearing Changes, Voice Changes, Sore Throat, Epistaxis Respiratory: Cough. absent: SOB, Sputum, Wheezing Cardiovascular: Chest Pain. absent: Palpitations, Edema, Calf Pain, LENZ, Orthopnea, Syncope Gastrointestinal: Normal. absent: Abdominal Pain, Stool Changes, Constipation, Diarrhea, Nausea, Vomiting, Appetite Changes Genitourinary Female: Normal. absent: Dysuria, Frequency, Hematuria, Vaginal Bleeding Musculoskeletal: Other (Chest pain) Skin: Normal. absent: Rash, Pruritis, Skin Lesions, Laceration Neurological: Normal. absent: Headache, Dizziness Endocrine: Normal. absent: Diaphoresis, Polyuria, Polydipsia Hemo/Lymphatic: Normal. absent: Adenopathy, Easy Bleeding, Easy Bruising Physical Exam Vital Signs Reviewed: Yes (afebrile, mildly HTN no resp. Distress) Vital Signs Temp Pulse Resp BP Pulse Ox 03/12/18 09:09 97.9 F 90 18 144/105 H 100 Respiratory Rate: Normal Appearance: Positive for: Well-Appearing Pain Distress: None Mental Status: Positive for: Alert and Oriented X 3 - Systems Exam Head: Present: Atraumatic, Normocephalic Pupils: Present: PERRL Extroacular Muscles: Present: EOMI Conjunctiva: Present: Normal Mouth: Present: Moist Mucous Membranes. No: Dry, Drooling, Trismus Pharnyx: Present: Normal. No: ERYTHEMA, EXUDATE, Peritonsilar Swelling, Uvular Deviation, Muffled/Hoarse Voice, Strider Nose (External): No: Atraumatic, Abrasion Nose (Internal): No: Normal Inspection Neck: Present: Normal Range of Motion. No: Meningeal Signs Respiratory/Chest: Present: Clear to Auscultation, Good Air Exchange, Tender to Palpation. No: Respiratory Distress, Accessory Muscle Use, Wheezes, Decreased Breath Sounds, Rales, Retracting, Rhonchi, Tachypneic Cardiovascular: Present: Regular Rate and Rhythm, Normal S1, S2. No: Murmurs, Irregular Rhythm, Tachycardic, Bradycardic, Rub, Gallop, Muffled Abdomen: No: Tenderness, Distention, Peritoneal Signs Back: Present: Normal Inspection Upper Extremity: Present: Normal Inspection. No: Cyanosis, Edema Lower Extremity: Present: Normal Inspection. No: Edema Neurological: Present: GCS=15 Skin: Present: Warm, Dry, Normal Color. No: Rashes Psychiatric: Present: Alert, Oriented x 3, Normal Insight, Normal Concentration , Normal Mood. No: Suicidal Ideation Medical Decision Making ED Course and Treatment: 03/12/18 09:51 32 yr old F w/ hx of asthma p/w CP after coughing. Well appearing, without wheezes or rales, no sore throat, protecting airway w/ out drooling. No dysphagia. No recent travel. Low pretest wells. PERC out. Low risk CP, CP non cardiac in presentation, given recent hx of cough, congestion, no family hx of personal risk factors for WI. Occasional smoker "1 / month" EKG unremarkable. Will plan on POC UPT, XR, Motrin and albuterol. - RAD Interpretation Radiology Orders: 03/12/18 09:28 CHEST TWO VIEWS (PA/LAT) [RAD] Stat - EKG Interpretation EKG Interpretation (Text): Rate: 92, Rythmn: NSR Interp: No STEMI, relatively unchanged from previous 03/12/18 09:50 Interpreted by ED Physician: Yes Type: 12 lead EKG Comparison: Similar to previous EKG - Medication Orders Current Medication Orders: Discontinued Medications Albuterol Sulfate (Albuterol 0.5% Inhal Jerica (2.5 Mg/0.5 Ml) Ud) 2.5 mg IH STAT STA Stop: 03/12/18 09:31 Last Admin: 03/12/18 10:07 Dose: 2.5 mg Ibuprofen (Motrin Tab) 600 mg PO STAT STA Stop: 03/12/18 09:31 Last Admin: 03/12/18 10:07 Dose: 600 mg MAR Pain/Vitals Document 03/12/18 10:07 [email or web address] (Rec: 03/12/18 10:07 CAST [id number]) Pain Reassessment Is This A Pain ReAssessment? No Sleep Is patient sleeping during reassessment? No Presence of Pain Presence of Pain Yes Pain Scale Used Pain Scale Used Numeric Location Pain Location Body Site Chest Description Constant Intensity 3 Scale Used Numeric Pain Behavior Facial Grimacing Aggravating Factors Changing Position Alleviating Factors Medication Disposition/Present on Arrival - Present on Arrival Any Indicators Present on Arrival: No History of DVT/PE: No History of Uncontrolled Diabetes: No Urinary Catheter: No History of Decub. Ulcer: No History Surgical Site Infection Following: None - Disposition Have Diagnosis and Disposition been Completed?: Yes Diagnosis: Viral syndrome Disposition: HOME/ ROUTINE Disposition Time: 11:24 Patient Plan: Discharge Condition: IMPROVED Discharge Instructions (ExitCare): Viral Syndrome (DC) Additional Instructions: RENZO ALMAGUER, thank you for letting us take care of you today. Your provider was Keny Lerma and you were treated for CHEST PAIN due to cough and VIRAL SYNDROME. The emergency medical care you received today was directed at your acute symptoms. If you were prescribed any medication, please fill it and take as directed. It may take several days for your symptoms to resolve. Return to the Emergency Department if your symptoms worsen, do not improve, or if you have any other problems. Please contact your doctor or call one of the physicians/clinics you have been referred to that are listed on the Patient Visit Information form that is included in your discharge packet. Bring any paperwork you were given at discharge with you along with any medications you are taking to your follow up visit. Our treatment cannot replace ongoing medical care by a primary care provider outside of the emergency department. Thank you for allowing the [facility] [employer] team to be part of your care today. If you had an X-Ray or CT scan: A Radiologist will review the ED reading if any change in treatment is needed we will contact you. If you had a blood, urine, or wound culture: It will take several days for the results, if any change in treatment is needed we will contact you. If you had an STI test: It will take 48 hours for the results. Please call after 1 week if you have not heard back. Prescriptions: Albuterol HFA [Ventolin HFA 90 mcg/actuation (8 g)] 2 puff IH [id number] Days # 1 puff Acetaminophen with Codeine [Tylenol with Codeine #3 Tablet] 1 each PO Q6 PRN 3 Days #5 tablet PRN Reason: Cough Azithromycin [Z-Owen] 250 mg PO DAILY 5 Days #6 tab Referrals: Non [facility] Provider, [Non-Staff] - Follow up with primary Forms: [employer] (Occitan)
--- NOTE | 2018-03-12 11:20 | RAD ---
Date of service: 03/12/2018 HISTORY: cp COMPARISON: No prior. TECHNIQUE: Chest PA and lateral FINDINGS: LUNGS: No active pulmonary disease. PLEURA: No significant pleural effusion identified. No pneumothorax apparent. CARDIOVASCULAR: Normal. OSSEOUS STRUCTURES: No significant abnormalities. VISUALIZED UPPER ABDOMEN: Normal. OTHER FINDINGS: None. IMPRESSION: No active disease.
[2018-03-12 11:50] VITALS: PULSE 95
[2018-03-12 11:51] VITALS: RESP 19; TEMP 98.1; O2SAT 98
--- NOTE | 2018-03-12 22:38 | CARD ---
APPROVED REPORT Date of service: 03/12/2018 EKG Measurement Heart [id number] <Conclusion> Normal sinus rhythm Normal ECG
== END 2018-03-12 11:59 | disposition home or self-care (01) ==
LOC: ED 08:55
DX: B34.9 Viral infection, unspecified (principal)

== ENCOUNTER 2018-05-02 17:54 | Emergency (ER) | payer OTHER ==
--- NOTE | 2018-05-02 18:37 | ED PDOC ---
Arrival/HPI - General Historian: Patient - History of Present Illness Narrative History of Present Illness (Text): 05/02/18 18:36 32 yr old female w/ hx of asthma (no previous admissions or intubations), hx of axiety, present to ED for evaluation of let sided chest pain for 4 days. Patient reports, pain is localized, constant, associated with intermittent palpitation. At present time, pt appears anxious, crying, reports hx of anxiety " had similar in past, told its panic attack". No hx of blood clots, no venous stasis, no family hx of blood clots, No leg swelling, No recent trauma or surgery, No Hormone usage. No hx of cancer. No family hx of PA or heart related issues. No radiation to back. No SOB. No drug use. Occasional / Social smoker. Denies high fever, headache, dizziness, neck pain, SOB, dyspnea, abd. pain, V/D, UTI sx. <Fiona Wills - Last Filed: 05/02/18 20:30> <Selvin Rothman - Last Filed: 05/02/18 22:33> - General Chief Complaint: Chest Pain Time Seen by Provider: 05/02/18 18:20 Past Medical History - Provider Review Nursing Documentation Reviewed: Yes - Travel History Have you recently traveled outside [place] w/in the past 3 mons?: No - Patient History Narrative Patient History: Asthma, morbid obesity - Infectious Disease Hx of Infectious Diseases: None - Tetanus Immunization Tetanus Immunization: Unknown - Cardiac Hx Cardiac Disorders: No - Pulmonary Hx Respiratory Disorders: Yes Hx Asthma: Yes - Neurological Hx Neurological Disorder: No - HEENT Hx HEENT Disorder: No - Renal Hx Renal Disorder: No - Endocrine/Metabolic Hx Endocrine Disorders: No - Hematological/Oncological Hx Blood Disorders: Yes Other/Comment: low iron - Integumentary Hx Dermatological Disorder: No - Musculoskeletal/Rheumatological Hx Musculoskeletal Disorders: Yes Hx Back Pain: Yes Other/Comment: chronic back pain - Gastrointestinal Hx Gastrointestinal Disorders: No - Genitourinary/Gynecological Hx Genitourinary Disorders: No - Psychiatric Hx Psychophysiologic Disorder: Yes Hx Anxiety: Yes Hx Substance Use: No - Anesthesia Hx Anesthesia: No <Fiona Wills - Last Filed: 05/02/18 20:30> Family/Social History - Physician Review Nursing Documentation Reviewed: Yes Family/Social History: No Known Family HX Smoking Status: Light Smoker < 10 Cigarettes Daily Hx Alcohol Use: No Hx Substance Use: No Hx Substance Use Treatment: No <HenrryFiona langley - Last Filed: 05/02/18 20:30> Allergies/Home Meds <Fiona Wills - Last Filed: 05/02/18 20:30> <StephanSelvin - Last Filed: 05/02/18 22:33> Allergies/Adverse Reactions: Allergies No Known Allergies Allergy (Verified 03/12/18 09:02) Home Medications: Home Meds Medication Instructions Recorded Confirmed Norethindrone Acetate [Aygestin] 5 mg PO DAILY 05/02/18 05/02/18 Terbinafine HCl 250 mg PO DAILY 05/02/18 05/02/18 Review of Systems - Physician Review All systems were reviewed & negative as marked: Yes - Review of Systems Constitutional: Normal Eyes: Normal ENT: Normal Respiratory: Normal. absent: SOB, Cough, Sputum Cardiovascular: Chest Pain Gastrointestinal: Normal Genitourinary Female: Normal Musculoskeletal: Normal Skin: Normal Neurological: Normal Endocrine: Normal Hemo/Lymphatic: Normal Psychiatric: Anxiety. absent: Depression, Suicidal Ideation <Fiona Wills - Last Filed: 05/02/18 20:30> Physical Exam Vital Signs Temp Pulse Resp BP Pulse Ox 05/02/18 18:04 98.9 F 80 18 145/86 99 Temperature: Afebrile Blood Pressure: Normal Pulse: Regular Respiratory Rate: Normal Appearance: Positive for: Well-Appearing, Non-Toxic, Uncomfortable (anxious, crying) Pain Distress: None Mental Status: Positive for: Alert and Oriented X 3 - Systems Exam Conjunctiva: Present: Normal Mouth: Present: Moist Mucous Membranes, Normal Lips. No: Drooling Pharnyx: No: ERYTHEMA Nose (Internal): Present: Normal Inspection Neck: Present: Trachea Midline. No: JVD, Bruit Respiratory/Chest: Present: Clear to Auscultation, Good Air Exchange. No: R espiratory Distress, Accessory Muscle Use Cardiovascular: Present: Regular Rate and Rhythm, Normal S1, S2. No: Murmurs Abdomen: No: Tenderness, Distention, Peritoneal Signs, Rebound, Guarding Back: No: CVA Tenderness Upper Extremity: Present: Normal Inspection. No: Cyanosis, Edema Lower Extremity: Present: Normal Inspection, Normal ROM. No: Edema, CALF TENDERNESS, Tenderness, Deformity Neurological: Present: GCS=15, Speech Normal, Normal Sensory Function, Norm Deep Tendon Reflexes Skin: Present: Warm, Dry, Normal Color. No: Rashes Psychiatric: Present: Alert, Oriented x 3, Normal Insight, Anxious <Fiona Wills - Last Filed: 05/02/18 20:30> Vital Signs Temp Pulse Resp BP Pulse Ox 05/02/18 19:15 98.9 F 79 20 142/84 98 05/02/18 18:04 98.9 F 80 18 145/86 99 <Selvin Rothman - Last Filed: 05/02/18 22:33> Medical Decision Making ED Course and Treatment: 05/02/18 At 19:38, blood work review, elevated D-Dimer noted. CTA r/o PE ordered. On re-eval, pt resting comfortably now, not in any apparent distress. Afebrile, hemodynamicaly stable. PulseOx 99% RA Neck: Supple, (-) JVD, (-) carotid bruits B/l CVS: (+)S1S2, reg. Lungs: CTA B/L, BS equal B/L Neurologicaly intact. - RAD Interpretation Radiology Orders: CXR review (-) acute findings - EKG Interpretation EKG Interpretation (Text): 05/02/18 18:36 SR@71/min, NAD, no acute T wave or ST-T changes Interpreted by ED Physician: Yes - Transfer of Care Patient signed out to Dr:: Pending Radiology Studies:: Angio chest r/o PE <Fiona Wills - Last Filed: 05/02/18 20:30> - Lab Interpretations Lab Results: 05/02/18 19:09 05/02/18 19:09 Lab Results 05/02/18 19:09: Sodium 141, Potassium 4.3, Chloride 107, Carbon Dioxide 25, Anion Gap 13, BUN 14, Creatinine 0.7, Est GFR ( Amer) > 60, Est GFR (Non- Af Amer) > 60, Random Glucose 102, Calcium 9.2, Total Bilirubin 0.4, AST 27, ALT 33, Alkaline Phosphatase 50, Lactate Dehydrogenase 548, Total Creatine Kinase 98, Troponin I < 0.01, Total Protein 7.6, Albumin 4.1, Globulin 3.5, Albumin/Alessia bulin Ratio 1.1 05/02/18 19:09: Urine Color Yellow, Urine Appearance Clear, Urine pH 6.0, Ur Specific [place] >= 1.030, Urine Protein Trace H, Urine Glucose (UA) Negative, Urine Ketones Trace H, Urine Blood Negative, Urine Nitrate Negative, Urine Bilirubin Negative, Urine Urobilinogen 1.0 H, Ur Leukocyte Esterase Negative, Urine RBC Negative, Urine WBC 1 - 3, Ur Epithelial Cells 3 - 4, Urine Bacteria Few 05/02/18 19:09: PT 13.0 H, INR 1.14, APTT 25.9, D-Dimer, Quantitative 261 H 05/02/18 19:09: WBC 9.9 D, RBC 4.23, Hgb 10.0 L, Hct 32.5 L, MCV 76.8 L, MCH 23.6 L, MCHC 30.8 L, RDW 18.1 H, Plt Count 418, MPV 8.4, Gran % 63.7, Lymph % (Auto) 26.2, [place] % (Auto) 8.4 H, Eos % (Auto) 1.5, Baso % (Auto) 0.2, Gran # 6.31, Lymph # (Auto) 2.6, [place] # (Auto) 0.8 H, Eos # (Auto) 0.2, Baso # (Auto) 0.02 - RAD Interpretation Radiology Orders: 05/02/18 18:37 CHEST TWO VIEWS (PA/LAT) [RAD] Stat 05/02/18 19:36 ANGIO CHEST PE PROTOCOL [CT] Stat - Medication Orders Current Medication Orders: Discontinued Medications Aspirin (Aspirin) 325 mg PO STAT STA Stop: 05/02/18 18:39 Last Admin: 05/02/18 18:54 Dose: 325 mg Lorazepam (Ativan) 1 mg IVP STAT STA; Protocol Stop: 05/02/18 18:39 Last Admin: 05/02/18 18:54 Dose: 1 mg IVP Administration Document 05/02/18 18:54 LUIS ARMANDO (Rec: 05/02/18 18:54 LUIS ARMANDO [id number]) Charges for Administration # of IVP Administrations 1 <Selvin Rothman - Last Filed: 05/02/18 22:33> Disposition/Present on Arrival - Present on Arrival Any Indicators Present on Arrival: No History of DVT/PE: No History of Uncontrolled Diabetes: No Urinary Catheter: No History of Decub. Ulcer: No History Surgical Site Infection Following: None - Disposition Have Diagnosis and Disposition been Completed?: No Disposition Time: 20:31 <HenrryshivamFiona - Last Filed: 05/02/18 20:30> <Selvin Rothman - Last Filed: 05/02/18 22:33> - Disposition Diagnosis: Chest pain, Anxiety, Panic attack Disposition: HOME/ ROUTINE Patient Problems: Current Active Problems Problem Status Onset Chest pain Acute Anxiety Acute Panic attack Acute Condition: STABLE Discharge Instructions (ExitCare): Panic Disorder, Smoking: Not Just Harmful to Your Lungs and Heart, Anxiety, Adult (DC), Chest Pain (ED) Additional Instructions: return for any new or worsening symptoms. follow up with your primary care doctor as soon as possible. you should not smoke cigarettes or anything in your lung while taking " control pills" RENZO ALMAGUER, thank you for letting us take care of you today. Your provider was Dr. Selvin Rothman and you were treated for chest pain and anxiety. The emergency medical care you received today was directed at your acute symptoms. If you were prescribed any medication, please fill it and take as directed. It may take several days for your symptoms to resolve. Return to the Emergency Department if your symptoms worsen, do not improve, or if you have any other problems. Please contact your doctor or call one of the physicians/clinics you have been referred to that are listed on the Patient Visit Information form that is included in your discharge packet. Bring any paperwork you were given at discharge with you along with any medications you are taking to your follow up visit. Our treatment cannot replace ongoing medical care by a primary care provider outside of the emergency department. Thank you for allowing the [facility] team to be part of your care today. If you had an X-Ray or CT scan: A Radiologist will review the ED reading if any change in treatment is needed we will contact you. If you had a blood, urine, or wound culture: It will take several days for the results, if any change in treatment is needed we will contact you. If you had an STI test: It will take 48 hours for the results. Please call after 1 week if you have not heard back. Prescriptions: Ibuprofen [Motrin Tab] 600 mg PO QID #42 tab Referrals: [facility] [Outside] - Follow up with primary Krysta Vincent MD [Medical Doctor] - Follow up with primary Forms: [employer] (Colombian), WORK NOTE
[2018-05-02 19:14] LABS: BASO # 0.02 K/mm3 (0.0-2.0); BASO % 0.2 % (0.0-3.0); EOS # 0.2 (0.0-0.7); EOS % 1.5 % (1.5-5.0); GRAN # 6.31 (1.4-6.5); GRAN % 63.7 % (50.0-68.0); LYMPH # 2.6 (1.2-3.4); LYMPH % 26.2 % (22.0-35.0); MEAN CELL VOLUME 76.8 fl (80.0-105.0); MEAN CORPUSCULAR HEMOGLOBIN 23.6 pg (25.0-35.0); MEAN CORPUSCULAR HGB CONC 30.8 g/dl (31.0-37.0); MEAN PLATELET VOLUME 8.4 fl (7.0-11.0); MONO # 0.8 (0.1-0.6); MONO % 8.4 % (1.0-6.0); RBC 4.23 10^6/uL (3.5-6.1); RED CELL DISTRIBUTION WIDTH 18.1 % (11.5-14.5); WHITE BLOOD COUNT 9.9 10^3/ul (4.5-11.0)
[2018-05-02 19:15] LABS: URINE BILIRUBIN NEGATIVE (NEGATIVE); URINE BLOOD NEGATIVE (NEGATIVE); URINE GLUCOSE (UA) NEGATIVE (NEGATIVE); URINE LEUKOCYTE ESTERASE NEGATIVE Leu/uL (NEGATIVE); URINE PROTEIN TRACE mg/dL (<30 mg/dL)
[2018-05-02 19:25] LABS: ALB/GLOB RATIO 1.1 (1.1-1.8); ALBUMIN 4.1 g/dL (3.0-4.8); ALT/SGPT 33 U/L (7-56); AST/SGOT 27 U/L (14-36); BLOOD UREA NITROGEN 14 mg/dL (7-21); CALCIUM 9.2 mg/dL (8.4-10.5); GFR NON-AFRICAN AMERICAN > 60; INR 1.14; PARTIAL THROMBOPLASTIN TIME 25.9 Seconds (25.1-36.5)
[2018-05-02 19:27] LABS: URINE APPEARANCE CLEAR (CLEAR); URINE COLOR YELLOW (YELLOW)
[2018-05-02 19:37] LABS: TROPONIN I < 0.01 ng/mL
[2018-05-02 19:40] LABS: URINE BACTERIA FEW (NEG); URINE RBC NEGATIVE /hpf (0-2)
[2018-05-02 20:05] VITALS: BMI 69.0
[2018-05-02 22:29] VITALS: TEMP 98.8
--- NOTE | 2018-05-02 22:35 | ED PDOC ---
Physical Exam Vital Signs Temp Pulse Resp BP Pulse Ox 05/02/18 22:28 98.8 F 74 19 140/83 99 05/02/18 19:15 98.9 F 79 20 142/84 98 05/02/18 18:04 98.9 F 80 18 145/86 99 Medical Decision Making ED Course and Treatment: 05/02/18 22:33 patient seen and examined by myself. patient states she frequently gets panic episode with underlying longstanding anxiety. patient presented today because this episode lasted longer than usual. all data and findings were discussed in detail with the patient. patient was informed verbally to quit smoking especially since she is taking hormonal therapy. patient remained stable throughout ED course and discharged in stable condition. - Lab Interpretations Lab Results: 05/02/18 19:09 05/02/18 19:09 Lab Results 05/02/18 19:09: Sodium 141, Potassium 4.3, Chloride 107, Carbon Dioxide 25, Anion Gap 13, BUN 14, Creatinine 0.7, Est GFR ( Amer) > 60, Est GFR (Non- Af Amer) > 60, Random Glucose 102, Calcium 9.2, Total Bilirubin 0.4, AST 27, ALT 33, Alkaline Phosphatase 50, Lactate Dehydrogenase 548, Total Creatine Kinase 98, Troponin I < 0.01, Total Protein 7.6, Albumin 4.1, Globulin 3.5, Albumin/Globulin Ratio 1.1 05/02/18 19:09: Urine Color Yellow, Urine Appearance Clear, Urine pH 6.0, Ur Specific [place] >= 1.030, Urine Protein Trace H, Urine Glucose (UA) Negative, Urine Ketones Trace H, Urine Blood Negative, Urine Nitrate Negative, Urine Bilirubin Negative, Urine Urobilinogen 1.0 H, Ur Leukocyte Esterase Negative, Urine RBC Negative, Urine WBC 1 - 3, Ur Epithelial Cells 3 - 4, Urine Bacteria Few 05/02/18 19:09: PT 13.0 H, INR 1.14, APTT 25.9, D-Dimer, Quantitative 261 H 05/02/18 19:09: WBC 9.9 D, RBC 4.23, Hgb 10.0 L, Hct 32.5 L, MCV 76.8 L, MCH 23.6 L, MCHC 30.8 L, RDW 18.1 H, Plt Count 418, MPV 8.4, Gran % 63.7, Lymph % (Auto) 26.2, [place] % (Auto) 8.4 H, Eos % (Auto) 1.5, Baso % (Auto) 0.2, Gran # 6.31, Lymph # (Auto) 2.6, [place] # (Auto) 0.8 H, Eos # (Auto) 0.2, Baso # (Auto) 0.02 - RAD Interpretation Narrative RAD Interpretations (Text): CTA Chest Impression: Technically limited study. No consolidation or atelectasis. No pulmonary embolic disease to the main pulmonary arteries or their main branches. Close clinical correlation is advised. Electronically signed on May 02, 2018 22:11:40 EDT by: Lauri Diaz M.D. Radiology Orders: 05/02/18 18:37 CHEST TWO VIEWS (PA/LAT) [RAD] Stat 05/02/18 19:36 ANGIO CHEST PE PROTOCOL [CT] Stat Propulsion Systems Engineer: Radiologist - EKG Interpretation EKG Interpretation (Text): 05/02/18 22:41 1836: nsr at 71 bpm, nml qrs, nml axis, no acute sttw abn Interpreted by ED Physician: Yes - Medication Orders Current Medication Orders: Discontinued Medications Aspirin (Aspirin) 325 mg PO STAT STA Stop: 05/02/18 18:39 Last Admin: 05/02/18 18:54 Dose: 325 mg Lorazepam (Ativan) 1 mg IVP STAT STA; Protocol Stop: 05/02/18 18:39 Last Admin: 05/02/18 18:54 Dose: 1 mg IVP Administration Document 05/02/18 18:54 LUIS ARMANDO (Rec: 05/02/18 18:54 LA [id number]) Charges for Administration # of IVP Administrations 1 Disposition/Present on Arrival - Present on Arrival Any Indicators Present on Arrival: No History of DVT/PE: No History of Uncontrolled Diabetes: No Urinary Catheter: No History of Decub. Ulcer: No History Surgical Site Infection Following: None - Disposition Diagnosis: Chest pain, Anxiety, Panic attack Disposition: HOME/ ROUTINE Disposition Time: 22:20 Patient Plan: Discharge Patient Problems: Current Active Problems Problem Status Onset Chest pain Acute Anxiety Acute Panic attack Acute Condition: STABLE Discharge Instructions (ExitCare): Panic Disorder, Smoking: Not Just Harmful to Your Lungs and Heart, Anxiety, Adult (DC), Chest Pain (ED) Additional Instructions: return for any new or worsening symptoms. follow up with your primary care d octor as soon as possible. you should not smoke cigarettes or anything in your lung while taking " control pills" RENZO ALMAGUER, thank you for letting us take care of you today. Your provider was Dr. Selvin Rothman and you were treated for chest pain and anxiety. The emergency medical care you received today was directed at your acute symptoms. If you were prescribed any medication, please fill it and take as directed. It may take several days for your symptoms to resolve. Return to the Emergency Department if your symptoms worsen, do not improve, or if you have any other problems. Please contact your doctor or call one of the physicians/clinics you have been referred to that are listed on the Patient Visit Information form that is included in your discharge packet. Bring any paperwork you were given at discharge with you along with any medications you are taking to your follow up visit. Our treatment cannot replace ongoing medical care by a primary care provider outside of the emergency department. Thank you for allowing the [facility] team to be part of your care today. If you had an X-Ray or CT scan: A Radiologist will review the ED reading if any change in treatment is needed we will contact you. If you had a blood, urine, or wound culture: It will take several days for the results, if any change in treatment is needed we will contact you. If you had an STI test: It will take 48 hours for the results. Please call after 1 week if you have not heard back. Prescriptions: Ibuprofen [Motrin Tab] 600 mg PO QID #42 tab Referrals: [facility] [Outside] - Follow up with primary Krysta Vincent MD [Medical Doctor] - Follow up with primary Forms: [employer] ([place]ian), WORK NOTE
[2018-05-02 23:16] VITALS: BP 135/73; PULSE 75; RESP 18; O2SAT 100
--- NOTE | 2018-05-03 07:34 | RAD ---
Date of service: 05/02/2018 HISTORY: pain COMPARISON: Chest radiographs 03/12/2018. TECHNIQUE: Chest PA and lateral FINDINGS: LUNGS: No active pulmonary disease. PLEURA: No significant pleural effusion identified. No pneumothorax apparent. CARDIOVASCULAR: Normal. OSSEOUS STRUCTURES: No significant abnormalities. VISUALIZED UPPER ABDOMEN: Normal. OTHER FINDINGS: None. IMPRESSION: No interval acute cardiopulmonary disease appreciated.
--- NOTE | 2018-05-03 08:39 | CT ---
Date of service: 05/02/2018 CTA chest PE protocol Indication: Chest pain Technique: Contiguous axial images were obtained through the chest with intravenous contrast enhancement. Sagittal and coronal reconstructions were generated and reviewed. This CT exam was performed using 1 or more of the following dose reduction techniques: Automated exposure control, adjustment of the MAA and/or kV according to patient size, and/or use of iterative reconstruction technique. IV contrast: 150 mL Omnipaque 350 Radiation dose (DLP): 537.91 MGy-cm. Comparison: Chest x-ray performed 05/02/18 Findings: Examination markedly limited by habitus. Visualized portions of the inferior thyroid gland appear unremarkable. The mediastinal and hilar vascular structures appear within normal limits. The heart appears within normal limits of size. No large central or segmental pulmonary embolus evident. No focal consolidation. No pleural effusion. No pneumothorax. Markedly limited visualized portions of the upper abdomen appear grossly unremarkable. No acute osseous abnormality is detected. Impression: No large central or segmental pulmonary embolus identified on this limited study. Preliminary impression was provided by [employer].
--- NOTE | 2018-05-03 13:00 | CARD ---
APPROVED REPORT Date of service: 05/02/2018 EKG Measurement Heart [id number] <Conclusion> Normal sinus rhythm Normal ECG
== END 2018-05-02 23:12 | disposition home or self-care (01) ==
LOC: ED 17:54
DX: R07.9 Chest pain, unspecified (principal); F41.0 Panic disorder [episodic paroxysmal anxiety]; F41.9 Anxiety disorder, unspecified
CPT/HCPCS: 71046; 71275; 80053; 81001; 82550; 83615; 84484; 85025; 85378; 85610; 85730; 93005; 96374; 99284; J2060; Q9967

== ENCOUNTER 2018-08-16 19:34 | Emergency (ER) | payer OTHER ==
[2018-08-16 19:55] VITALS: BMI 69.9
[2018-08-16 20:00] VITALS: TEMP 98.5
[2018-08-16 22:39] LABS: ALB/GLOB RATIO 1.2 (1.1-1.8); ALBUMIN 3.8 g/dL (3.0-4.8); ALT/SGPT 27 U/L (7-56); AST/SGOT 19 U/L (14-36); BLOOD UREA NITROGEN 17 mg/dL (7-21); CALCIUM 9.3 mg/dL (8.4-10.5); GFR NON-AFRICAN AMERICAN > 60
[2018-08-16 22:53] LABS: HEMOGLOBIN 9.2 g/dL (12.0-16.0); MEAN CELL VOLUME 72.4 fl (80.0-105.0); RBC 4.34 10^6/uL (3.5-6.1); WHITE BLOOD COUNT 11.1 10^3/uL (4.5-11.0)
[2018-08-16 22:54] LABS: BASO % 0.2 % (0.0-3.0); EOS % 3.1 % (1.5-5.0); GRAN # 7.28 (1.4-6.5); GRAN % 65.3 % (50.0-68.0); LYMPH # 2.6 (1.2-3.4); LYMPH % 23.5 % (22.0-35.0); MEAN CORPUSCULAR HEMOGLOBIN 21.2 pg (25.0-35.0); MEAN CORPUSCULAR HGB CONC 29.3 g/dl (31.0-37.0); MEAN PLATELET VOLUME 8.9 fl (7.0-11.0); MONO % 7.9 % (1.0-6.0); RED CELL DISTRIBUTION WIDTH 17.2 % (11.5-14.5)
[2018-08-16 22:55] LABS: BASO # 0.02 K/mm3 (0.0-2.0); EOS # 0.3 (0.0-0.7); MONO # 0.9 (0.1-0.6)
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
[2018-08-17 02:48] VITALS: BP 142/80; PULSE 88; RESP 17; O2SAT 99
--- NOTE | 2018-08-17 08:21 | CT ---
Date of service: 08/17/2018 PROCEDURE: CT HEAD WITHOUT CONTRAST. HISTORY: headache COMPARISON: None available. TECHNIQUE: Axial computed tomography images were obtained through the head/brain without intravenous contrast. Radiation dose: Total exam DLP = 926.33 mGy-cm. This CT exam was performed using one or more of the following dose reduction techniques: Automated exposure control, adjustment of the mA and/or kV according to patient size, and/or use of iterative reconstruction technique. FINDINGS: Streak artifact obscures evaluation of the skull base. HEMORRHAGE: No intracranial hemorrhage. BRAIN: No mass effect or edema. No atrophy or chronic microvascular ischemic changes.Please note that MRI with diffusion imaging is more sensitive in the detection of acute ischemic event. VENTRICLES: No hydrocephalus. CALVARIUM: Unremarkable. PARANASAL SINUSES: Unremarkable as visualized. No significant inflammatory changes. MASTOID AIR CELLS: Unremarkable as visualized. No inflammatory changes. OTHER FINDINGS: None. IMPRESSION: No acute intracranial pathology identified. Preliminary impression was provided by [facility].
== END 2018-08-17 02:25 | disposition home or self-care (01) ==
LOC: ED 19:34
DX: R51 Headache (principal); H53.8 Other visual disturbances; F17.210 Nicotine dependence, cigarettes, uncomplicated; I10 Essential (primary) hypertension
CPT/HCPCS: 70450; 80053; 81025; 85025; 96374; 99284; J1885

== ENCOUNTER 2018-09-11 16:06 | Emergency (ER) | payer OTHER ==
[2018-09-11 16:27] VITALS: O2SAT 99
[2018-09-11 16:29] VITALS: BMI 58.2
[2018-09-11] MEDS ORDERED: Sodium Chloride 0.9% 1,000 ML IV STA (16:47)
[2018-09-11] MEDS ORDERED: Apap-Butalbital-Caffeine 325-50-40mg Tab PO STA (16:47)
--- NOTE | 2018-09-11 16:59 | ED PDOC ---
Arrival/HPI - General Chief Complaint: Back Pain Time Seen by Provider: 09/11/18 16:10 Historian: Patient - History of Present Illness Narrative History of Present Illness (Text): 09/11/18 16:52 33yr old female presenting with headache and left sided neck pain s/p lumbar puncture yesterday. pt states she took 800mg of motrin without improvement with the pain. pt states pain is worse while sitting but minimally improves with re st. pt states she has tightness in the left side of the neck. pt states that she has been taking muscle relaxers and rubbed vicks vapor rub on area without improvement in the neck pain. pt states the pain feels tight and achy like a strained muscle.pt denies fever/chills. pt denies pain in the back. no other complaints. Time/Duration: Other (today) Symptom Onset: Gradual Quality: Aching Past Medical History - Provider Review Nursing Documentation Reviewed: Yes - Travel History Have you recently traveled outside [place] w/in the past 3 mons?: No - Infectious Disease Hx of Infectious Diseases: None - Tetanus Immunization Tetanus Immunization: Unknown - Reproductive Menopause: No Currently : No - Cardiac Hx Cardiac Disorders: No - Pulmonary Hx Respiratory Disorders: Yes Hx Asthma: Yes - Neurological Hx Neurological Disorder: No - HEENT Hx HEENT Disorder: No - Renal Hx Renal Disorder: No - Endocrine/Metabolic Hx Endocrine Disorders: No - Hematological/Oncological Hx Blood Disorders: Yes Other/Comment: low iron - Integumentary Hx Dermatological Disorder: No - Musculoskeletal/Rheumatological Hx Musculoskeletal Disorders: Yes Hx Back Pain: Yes Other/Comment: chronic back pain - Gastrointestinal Hx Gastrointestinal Disorders: No - Genitourinary/Gynecological Hx Genitourinary Disorders: No - Psychiatric Hx Psychophysiologic Disorder: Yes Hx Anxiety: Yes Hx Substance Use: No - Anesthesia Hx Anesthesia: No Hx Anesthesia Reactions: No Hx Malignant Hyperthermia: No Family/Social History - Physician Review Nursing Documentation Reviewed: Yes Family/Social History: Unknown Family HX Smoking Status: Light Smoker < 10 Cigarettes Daily Hx Alcohol Use: No Hx Substance Use: No Hx Substance Use Treatment: No Allergies/Home Meds Allergies/Adverse Reactions: Allergies No Known Allergies Allergy (Verified 03/12/18 09:02) Home Medications: Home Meds Medication Instructions Recorded Confirmed Norethindrone Acetate [Aygestin] 5 mg PO DAILY 05/02/18 05/02/18 Terbinafine HCl 250 mg PO DAILY 05/02/18 05/02/18 Review of Systems - Review of Systems Constitutional: absent: Fatigue, Fevers Eyes: absent: Vision Changes, Photophobia, Eye Pain ENT: absent: Sore Throat, Sinus Congestion Respiratory: absent: SOB, Cough Cardiovascular: absent: Chest Pain, Palpitations Gastrointestinal: absent: Abdominal Pain, Nausea, Vomiting Musculoskeletal: Neck Pain (left sided neck pain) Skin: absent: Rash, Pruritis Neurological: Headache. absent: Dizziness, Speech Changes, Facial Droop Psychiatric: absent: Anxiety, Depression Physical Exam Vital Signs Reviewed: Yes Vital Signs Temp Pulse Resp BP Pulse Ox 09/11/18 16:19 98 F 104 H 20 141/85 99 Temperature: Afebrile Blood Pressure: Normal Pulse: Tachycardic Respiratory Rate: Normal Appearance: Positive for: Well-Appearing, Non-Toxic, Comfortable Pain Distress: None Mental Status: Positive for: Alert and Oriented X 3 - Systems Exam Head: Present: Atraumatic Pupils: Present: PERRL Extroacular Muscles: Present: EOMI Conjunctiva: Present: Normal Mouth: Present: Moist Mucous Membranes Neck: Present: Normal Range of Motion, Paraspinal Tenderness (+ left sided paraspinal and trapezius tenderness). No: MIDLINE TENDERNESS Respiratory/Chest: Present: Clear to Auscultation, Good Air Exchange. No: Respiratory Distress, Accessory Muscle Use Cardiovascular: Present: Regular Rate and Rhythm, Normal S1, S2. No: Murmurs Back: Present: Normal Inspection Upper Extremity: Present: Normal ROM Lower Extremity: Present: Normal ROM Neurological: Present: GCS=15, Speech Normal, Gait Normal Skin: Present: Warm, Dry, Normal Color Psychiatric: Present: Alert, Oriented x 3 Medical Decision Making ED Course and Treatment: 09/11/18 17:03 33yr old female with headache and left sided achy neck pain s/p lumbar puncture yesterday. pt is alert and oriented. resting comfortably in er. texting on cellphone. NS Iv bolus toradol valium fiorcet 09/11/18 18:30 pt reassessment; pt sleeping in er. No distress. 09/11/18 19:12 pt reassessment; pt feeling better. i advised f/u with neurologist. take medication as prescribed. rest, f/u with PMD . return immediately if symptoms worsen,persist or if new symptoms develop. pt verbalized understanding of D/c instructions and need for immediate f/u case discussed in depth with dr. Jack payton. impression; headache s/p lumbar puncture. left sided neck pain continue motrin every 6 hours as needed for pain valium 1 tablet every 8 hours as needed for muscle spasms increase fluids follow up with the neurologist within the next 2 days. follow up with the primary care physician within the next 2 days. return immediately if symptoms worsen,persist or if new symptoms develop. Reassessment Condition: Re-examined, Improved - Medication Orders Current Medication Orders: Sodium Chloride (Sodium Chloride 0.9%) 1,000 mls @ 999 mls/hr IV .Q1H1M STA Stop: 09/11/18 17:47 Discontinued Medications Acetaminophen/Butalbital/Caffeine (Fioricet) 1 tab PO STAT STA Stop: 09/11/18 16:48 Disposition/Present on Arrival - Present on Arrival Any Indicators Present on Arrival: No History of DVT/PE: No History of Uncontrolled Diabetes: No Urinary Catheter: No History of Decub. Ulcer: No History Surgical Site Infection Following: None - Disposition Have Diagnosis and Disposition been Completed?: Yes Diagnosis: Headache following lumbar puncture, Neck pain on left side Disposition: HOME/ ROUTINE Disposition Time: 19:15 Patient Plan: Discharge Patient Problems: Current Active Problems Problem Status Onset Headache following lumbar puncture Acute Neck pain on left side Acute Condition: GOOD Discharge Instructions (ExitCare): Neck Pain, Headache, Adult (DC) Additional Instructions: continue motrin every 6 hours as needed for pain valium 1 tablet every 8 hours as needed for muscle spasms increase fluids follow up with the neurologist within the next 2 days. follow up with the primary care physician within the next 2 days. return immediately if symptoms worsen,persist or if new symptoms develop. Prescriptions: diaZEpam [Valium] 5 mg PO Q8 PRN #6 tab PRN Reason: Muscle Spasm Ibuprofen [Motrin] 600 mg PO Q6H PRN #20 tab PRN Reason: pain/fever reduction Referrals: Vitor Epstein MD [Staff Provider] - Follow up with primary Branden Oswald MD [Staff Provider] - Follow up with primary Forms: [employer] (Beninese), SCHOOL NOTE
[2018-09-11 17:35] LABS: BASO # 0.03 K/mm3 (0.0-2.0); BASO % 0.3 % (0.0-3.0); EOS # 0.4 (0.0-0.7); EOS % 3.9 % (1.5-5.0); HEMOGLOBIN 10.1 g/dL (12.0-16.0); LYMPH # 1.7 (1.2-3.4); LYMPH % 18.4 % (22.0-35.0); MEAN CELL VOLUME 72.4 fl (80.0-105.0); MEAN CORPUSCULAR HEMOGLOBIN 21.8 pg (25.0-35.0); MEAN CORPUSCULAR HGB CONC 30.1 g/dl (31.0-37.0); MEAN PLATELET VOLUME 8.8 fl (7.0-11.0); MONO # 0.7 (0.1-0.6); RBC 4.63 10^6/uL (3.5-6.1); RED CELL DISTRIBUTION WIDTH 20.3 % (11.5-14.5); WHITE BLOOD COUNT 9.4 10^3/uL (4.5-11.0)
[2018-09-11 18:07] VITALS: TEMP 98.8
[2018-09-11 18:20] LABS: ALB/GLOB RATIO 1.1 (1.1-1.8); ALBUMIN 3.7 g/dL (3.0-4.8); ALT/SGPT 14 U/L (7-56); AST/SGOT 20 U/L (14-36); BLOOD UREA NITROGEN 15 mg/dL (7-21); CALCIUM 8.9 mg/dL (8.4-10.5); GFR NON-AFRICAN AMERICAN > 60
[2018-09-11 20:01] VITALS: BP 121/68; PULSE 92; RESP 17
== END 2018-09-11 20:00 | disposition home or self-care (01) ==
LOC: ED 16:06
DX: G97.1 Other reaction to spinal and lumbar puncture (principal); Y84.4 Aspiration of fluid as the cause of abnormal reaction of the patient, or of later complication, without mention of misadventure at the time of the procedure; M54.2 Cervicalgia; F17.210 Nicotine dependence, cigarettes, uncomplicated
CPT/HCPCS: 80053; 81025; 85025; 96374; 99283; J1885; J7030

== ENCOUNTER 2018-12-14 17:55 | Emergency (ER) | payer OTHER ==
[2018-12-14 18:02] VITALS: BMI 68.6
[2018-12-14 18:03] VITALS: BP 140/82; TEMP 98.3
[2018-12-14] MEDS ORDERED: Albuterol-Ipratrop 3 mg / 0.5 (3 ml) UD IH STA (18:06)
--- NOTE | 2018-12-14 18:09 | ED PDOC ---
Arrival/HPI - General Chief Complaint: Shortness Of Breath Time Seen by Provider: 12/14/18 17:58 Historian: Patient - History of Present Illness Time/Duration: Other (1 day) Symptom Onset: Gradual Symptom Course: Unchanged Severity Level: Mild Activities at Onset: Rest Associated Symptoms (Text): 12/14/18 18:07 Patient reports that she stopped taking her asthma medication and developed shortness of breath and wheezing beginning yesterday. She believes it is related to being outside all day yesterday. No cough congestion or URI. No fever. No chest pain. No travel or exposure. She does have a nebulizer at home. She stopped taking her Singulair and albuterol on her own as she was feeling better. She does have her medications at home. She is morbidly obese. She appears to be in no respiratory distress. No accessory muscle use retractions or tachypnea. She is able to speak in full easy sentences. She is a homosexual.. Past Medical History - Infectious Disease Hx of Infectious Diseases: None - Tetanus Immunization Tetanus Immunization: Unknown - Cardiac Hx Cardiac Disorders: No - Pulmonary Hx Respiratory Disorders: Yes Hx Asthma: Yes - Neurological Hx Neurological Disorder: No - HEENT Hx HEENT Disorder: No - Renal Hx Renal Disorder: No - Endocrine/Metabolic Hx Endocrine Disorders: No - Hematological/Oncological Hx Blood Disorders: Yes Other/Comment: low iron - Integumentary Hx Dermatological Disorder: No - Musculoskeletal/Rheumatological Hx Musculoskeletal Disorders: Yes Hx Back Pain: Yes Other/Comment: chronic back pain - Gastrointestinal Hx Gastrointestinal Disorders: No - Genitourinary/Gynecological Hx Genitourinary Disorders: No - Psychiatric Hx Psychophysiologic Disorder: Yes Hx Anxiety: Yes Hx Substance Use: Yes - Anesthesia Hx Anesthesia: No Hx Anesthesia Reactions: No Hx Malignant Hyperthermia: No Family/Social History - Physician Review Nursing Documentation Reviewed: Yes Family/Social History: Unknown Family HX Smoking Status: Light Smoker < 10 Cigarettes Daily Hx Alcohol Use: Yes Frequency of alcohol use: Socially Hx Substance Use: Yes Hx Substance Use Treatment: No Allergies/Home Meds Allergies/Adverse Reactions: Allergies No Known Allergies Allergy (Verified 12/14/18 18:02) Home Medications: Home Meds Medication Instructions Recorded Confirmed Norethindrone Acetate [Aygestin] 5 mg PO DAILY 05/02/18 05/02/18 Terbinafine HCl 250 mg PO DAILY 05/02/18 05/02/18 Review of Systems - Physician Review All systems were reviewed & negative as marked: Yes - Review of Systems Constitutional: absent: Fatigue, Fevers Respiratory: SOB, Wheezing. absent: Cough, Sputum Cardiovascular: absent: Chest Pain, Palpitations, Syncope Physical Exam Vital Signs Temp Pulse Resp BP Pulse Ox 12/14/18 18:02 98.3 F 113 H 20 140/82 99 Temperature: Afebrile Blood Pressure: Normal Pulse: Tachycardic Respiratory Rate: Normal Appearance: Positive for: Well-Appearing, Non-Toxic, Comfortable, Other (Morbidly obese) Pain Distress: None Mental Status: Positive for: Alert and Oriented X 3 - Systems Exam Pupils: Present: PERRL Extroacular Muscles: Present: EOMI Conjunctiva: Present: Normal Ears: Present: NORMAL TM, Normal Canal. No: Erythema, TM Bulging Mouth: Present: Moist Mucous Membranes Pharnyx: No: ERYTHEMA, EXUDATE, TONSILS ENLARGED Neck: Present: Normal Range of Motion Respiratory/Chest: Present: Wheezes, Decreased Breath Sounds. No: Respiratory Distress, Accessory Muscle Use, Rales, Retracting, Rhonchi, Tachypneic, Tender to Palpation Cardiovascular: Present: Regular Rate and Rhythm, Normal S1, S2. No: Murmurs Abdomen: No: Tenderness, Distention, Peritoneal Signs, Rebound, Guarding Lower Extremity: Present: Normal Inspection. No: Edema Medical Decision Making ED Course and Treatment: 12/14/18 18:35 Continues to have mild wheezing after first treatment. Her pulse oximetry remains 100% on room air. She does not appear to be in any respiratory distress. 12/14/18 19:46 Patient is still having some mild wheezing, though markedly improved. She is now reporting that she has run out of all of her medications. - RAD Interpretation Radiology Orders: X-ray chest 2 view shows no infiltrate effusion or cardiomegaly. Char Puller: Radiologist Disposition/Present on Arrival - Present on Arrival Any Indicators Present on Arrival: No History of DVT/PE: No History of Uncontrolled Diabetes: No Urinary Catheter: No History of Decub. Ulcer: No History Surgical Site Infection Following: None - Disposition Have Diagnosis and Disposition been Completed?: Yes Diagnosis: Asthma exacerbation, Morbid obesity, Dyspnea Disposition: HOME/ ROUTINE Disposition Time: 19:48 Patient Plan: Discharge Condition: IMPROVED Discharge Instructions (ExitCare): Asthma in Adults Additional Instructions: Tylenol or Advil as directed on bottle as needed. Follow-up with PMD. Follow- up in ER as needed. Prescriptions: Albuterol 0.083% [Albuterol 0.083% Inhal Jerica (2.5 mg/3 ml) UD] 3 ml IH Q6 #60 neb Mometasone [Asmanex Twisthaler 110 MCG] 1 puff INH BID #1 inhaler predniSONE [predniSONE Tab] 20 mg PO DAILY #10 tab Benzonatate [Tessalon Perles] 100 mg PO Q8 #30 sgl Albuterol HFA [Ventolin HFA 90 mcg/actuation (8 g)] 2 puff IH [id number] #1 puff Forms: [facility] (Montenegrin), WORK NOTE
[2018-12-14] MEDS ORDERED: Albuterol 0.083% Inhal Sol (2.5 mg/3 mL) UD INH STA ×2 (18:34→19:46)
[2018-12-14 21:09] VITALS: PULSE 90; RESP 18; O2SAT 100
--- NOTE | 2018-12-15 11:13 | RAD ---
Date of service: 12/14/2018 HISTORY: Shortness of breath COMPARISON: 05/02/2018 TECHNIQUE: Chest PA and lateral FINDINGS: LINES AND TUBES: None. LUNG AND PLEURA: The lungs are well inflated. There is mild pulmonary venous congestion. No focal consolidation. No pleural effusion or pneumothorax. HEART AND MEDIASTINUM: There is mild cardiomegaly. No aortic atherosclerotic calcifications present. The hilar and mediastinal contours are within normal limits. SKELETAL STRUCTURES: The bony structures are within normal limits for the patient's age. VISUALIZED UPPER ABDOMEN: Normal. OTHER FINDINGS: None. IMPRESSION: No active pulmonary disease.
== END 2018-12-14 21:09 | disposition home or self-care (01) ==
LOC: ED 17:55
DX: J45.901 Unspecified asthma with (acute) exacerbation (principal); E66.01 Morbid (severe) obesity due to excess calories; F17.210 Nicotine dependence, cigarettes, uncomplicated